=== PATIENT | female | born 1930 | race African-American/Black ===

== ENCOUNTER 2017-07-16 10:26 | Emergency (ER) | payer MEDICARE, OTHER ==
[~2017-07-16] VITALS: Ht 170.2 cm; Wt 70.0 kg
[~2017-07-16 10:26] MED LIST: AMLO10TA2 PO; ASPI81TA81 PO; ATOR20TA15 PO; CLAR10CA3 PO; GALA8TAB PO; GLIM1 PO; HYDR25TA5 PO; LANC1MIS74; LISI30TA4 PO; METF500T PO; METO25TA3 PO; OMEP20TA93 PO; VENTAER INH
[2017-07-16 10:31] VITALS: BP 215/87; PULSE 79; RESP 18; TEMP 98.8; O2SAT 98
--- NOTE | 2017-07-16 10:45 | PD ---
HPI Chief Complaint: Fall Time Seen by Provider: 10:39 Travel History International Travel<30 days: No Contact w/Intl Traveler<30days: No Traveled to known affect area: No History of Present Illness HPI 86yo F with PMH of HTN, DM presents to the ED with c/o mid scalp laceration, headache, right knee pain s/p fall today. Pt was on her walker going down a ramp and the walker slipped and she fell forward hitting her head. Denies any LOC, dizziness, chest pain, sob, n/v, abdominal pain, visual changes, focal weakness or numbness. Does not remember last tetanus. Denies any anticoagulation. PFSH Past Medical History Arthritis: Yes Autoimmune Disease: No Blood Disorders: No Cancer: No Cardiovascular Problems: Yes (htn) High Cholesterol: Yes Diabetes: Yes Patient Takes Glucophage: Yes Endocrine: Yes Gastrointestinal Disorders: Yes Genitourinary: No Hypertension: Yes Musculoskeletal: Yes Neurologic: No Psychiatric: No Reproductive: No Respiratory: Yes (bronchitis x2) Menopausal: Yes Past Surgical History Abdominal Surgery: No Cardiac Surgery: No Ear Surgery: No Endocrine Surgery: No Eye Surgery: No Genitourinary Surgery: No Gynecologic Surgery: No Oral Surgery: No Thoracic Surgery: No Other Surgery: Yes (R HIP REPLACEMENT) Social History Alcohol Use: No Tobacco Use: No Substance Use: No Allergies-Medications (Allergen,Severity, Reaction): Coded Allergies: No Known Allergies (Verified Adverse Reaction, Unknown, 03/22/17) Reported Meds & Prescriptions Reported Meds & Active Scripts Active Hydrocodone-Acetaminophen 5-325 mg Tab 1 Tab PO Q6H PRN Omeprazole 20 Mg Tab 20 Mg PO EVERY OTHER DAY Metformin (Metformin HCl) 500 Mg Tab 500 Mg PO BIDPC With meals Reported Aspir-81 (Aspirin) 81 Mg Tabdr 81 Mg PO DAILY Ventolin Hfa 18 GM Inh (Albuterol Sulfate) 90 Mcg/Act Aer 1 Puff INH Q4H PRN Review of Systems Except as stated in HPI: all other systems reviewed are Neg Physical Exam Narrative GENERAL: 86yo F in mild distress. SKIN: Focused skin assessment warm/dry. HEAD: 2cm mid scalp laceration. EYES: Pupils equal and round at 3mm bilaterally. EOMI. ENT: No nasal bleeding or discharge. Mucous membranes pink and moist. NECK: Cervical spine collar. CARDIOVASCULAR: Regular rate and rhythm. No murmur appreciated. RESPIRATORY: No accessory muscle use. Clear to auscultation. Breath sounds equal bilaterally. GASTROINTESTINAL: Abdomen soft, non-tender, nondistended. MUSCULOSKELETAL: No ttp in bilateral hips. +TTP right knee. No edema or open wound on knee. Sensation intact. Distal pulses intact. NEUROLOGICAL: Awake and alert. No obvious cranial nerve deficits. Motor grossly within normal limits. Normal speech. PSYCHIATRIC: Appropriate mood and affect; insight and judgment normal. Data Data Last Documented VS Vital Signs Date Time Temp Pulse Resp B/P (MAP) Pulse Ox O2 Delivery O2 Flow Rate FiO2 07/16/17 13:30 86 14 170/64 (99) 95 07/16/17 12:00 Room Air 07/16/17 10:[address] Brain W/O Iv Contrast(Rout) (07/16/17 ) Ct Cerv Spine W/O Contrast (07/16/17 ) Knee, Ltd (1 Or 2vws) (07/16/17 ) Blood Glucose (07/16/17 10:39) Tetanus/Diphtheria Tox Adult (Tetanus/Di (07/16/17 11:00) Morphine Inj (Morphine Inj) (07/16/17 11:00) Acetaminophen (Tylenol) (07/16/17 13:00) Ed Discharge Order (07/16/17 12:49) MDM Medical Decision Making Medical Screen Exam Complete: Yes Emergency Medical Condition: Yes Differential Diagnosis ICH vs. fracture vs. contusion Narrative Course 86yo F with c/o headache and right knee pain s/p mechanical fall today. CT cervical spine showed no acute fracture or malalignment. There is a disc osteophyte complex at C5-6 with mass effect on the anterior thecal sac with apparent flattening of the cord. Pt will have to follow up with neurosurgery as outpatient. Informed pt of this. Pt has no focal neurologic deficits. CT brain showed new nondisplaced fracture through left lateral orbit. No hemorrhage. Will have pt follow up with craniofacial as outpatient. Xray right knee showed no acute fracture. Osteopenia and degenerative change. Pt given tetanus and morphine with improvement of pain. Copies of CT scan given to patient. Return precautions given. Procedures Procedure Narrative LACERATION LOCATION: scalp LENGTH: 2cm NUMBER OF STITCHES/PHYLLIS: 3 phyllis REPAIR: The wound was copiously irrigated and explored without evidence of foreign body, tendon injury or neurovascular injury. The wound was closed using staple. This was a single layer repair. Patient tolerated the procedure well. Diagnosis Primary Impression: Left orbit fracture Qualified Codes: S02.82XA - Fracture of other specified skull and facial bones , left side, initial encounter for closed fracture Referrals: Umang Murphy MD call for appointment Incidental finding of disc osteophyte complex at C5-6 with mass effect on anterior thecal sac and apparent flattening of the cord. Carter Marin DMD call for appointment Nondisplaced fracture through left lateral orbit. Patient Instructions: General Instructions Departure Forms: Tests/Procedures Additional Instructions: Please follow up with neurosurgery and craniofacial as instructed. Please return to the ED if symptoms worsen. Please have phyllis remove in 5 days by primary care physician or ED. Med/Other Pt SpecificInfo: Prescription(s) given Scripts Hydrocodone-Acetaminophen (Hydrocodone-Acetaminophen) 5-325 mg Tab 1 TAB PO Q6H Y for PAIN, #7 TAB 0 Refills Prov: Meaghan Urena DO 07/16/17 Disposition: 01 DISCHARGE HOME Condition: Stable Meaghan Urena DO Jul 16, 2017 10:45
[2017-07-16] MEDS ORDERED: MORPHINE SULFATE 2 MG/ML SYRINGE IM ONE (11:00)
[2017-07-16] MEDS ORDERED: TETANUS/DIPHTHERIA TOXOID ADULT 0.5 ML VIAL IM ONE (11:00)
--- NOTE | 2017-07-16 11:09 | RADRPT ---
EXAM DATE/TIME: 07/16/2017 10:57 [facility] COMPARISON: No previous studies available for comparison. INDICATIONS : Pain in right knee, post fall today. MEDICAL HISTORY : None. SURGICAL HISTORY : Total knee replacement, left. Total right hip replacement. ENCOUNTER: Initial ACUITY: 1 day PAIN SCORE: 7/10 LOCATION: Right Knee. FINDINGS: Limited AP and lateral views of the right knee were obtained and not a standard 4 view trauma series which limits the sensitivity for detecting subtle abnormalities. There is diffuse moderate osteopenia normal alignment. There is no visualized fracture. Degenerative changes noted in the lateral compart ment joint space loss and sclerosis as well as mild spurring. There is no definite effusion. Vascular calcifications are present. CONCLUSION: 1. No acute fracture or malalignment visualized on this limited 2 view study. 2. Osteopenia and degenerative change. Silvestre Esparza MD on July 16, 2017 at 11:06 Board Certified Radiologist. This report was verified electronically.
--- NOTE | 2017-07-16 11:16 | RADRPT ---
EXAM DATE/TIME: 07/16/2017 11:03 [facility] COMPARISON: CT BRAIN W/O CONTRAST, February 18, 2015, 14:51. INDICATIONS : Trauma, fall today onto concrete. RADIATION DOSE: 56.35 CTDIvol (mGy) MEDICAL HISTORY : Hypertension. diabetes SURGICAL HISTORY : None. ENCOUNTER: Initial ACUITY: 1 day PAIN SCALE: 7/10 LOCATION: Bilateral head TECHNIQUE: Multiple contiguous axial images were obtained of the head. Using automated exposure control and adj ustment of the mA and/or kV according to patient size, radiation dose was kept as low as reasonably a chievable to obtain optimal diagnostic quality images. DICOM format image data is available electro nically for review and comparison. FINDINGS: CEREBRUM: The ventricles are normal for age. No evidence of midline shift, mass lesion, hemorrhage or acute in farction. No extra-axial fluid collections are seen. POSTERIOR FOSSA: The cerebellum and brainstem are intact. The 4th ventricle is midline. The cerebellopontine angle i s unremarkable. EXTRACRANIAL: There is a new nondisplaced small fracture through the left lateral orbit best seen on axial image #1 4. There is no intraorbital emphysema. The remainder of the facial bones are intact. The paranasal si nuses are clear. SKULL: The calvaria is intact. No evidence of skull fracture. There is soft tissue swelling over the left f rontal bone. CONCLUSION: 1. New nondisplaced fracture through the left lateral orbit. The remainder of the visualized facial b ones are intact. 2. Soft tissue swelling over the left frontal bone with no evidence of fracture or hemorrhage. Silvestre Esparza MD on July 16, 2017 at 11:11 Board Certified Radiologist. This report was verified electronically.
--- NOTE | 2017-07-16 11:27 | RADRPT ---
EXAM DATE/TIME: 07/16/2017 11:03 [facility] COMPARISON: No previous studies available for comparison. INDICATIONS : Trauma, fall today onto concrete. Left orbit fracture. RADIATION DOSE: 20.31 CTDIvol (mGy) MEDICAL HISTORY : Hypertension. diabetes SURGICAL HISTORY : None. ENCOUNTER: Initial ACUITY: 1 day PAIN SCALE: 7/10 LOCATION: Bilateral neck TECHNIQUE: Volumetric scanning of the cervical spine was performed. Multiplanar reconstructions i n the sagittal, coronal and oblique axial planes were performed. Using automated exposure control a nd adjustment of the mA and/or kV according to patient size, radiation dose was kept as low as reason ably achievable to obtain optimal diagnostic quality images. DICOM format image data is available e lectronically for review and comparison. FINDINGS: The sagittal reconstructions demonstrate normal alignment and normal prevertebral soft tissues. The d ens is intact and there is a normal atlantoaxial relationship. Degenerative changes are present great est at the C5-6 level with disc space narrowing, hypertrophic change and vacuum disc phenomena. The axial images demonstrate that the vertebral bodies and posterior elements are intact. The soft ti ssues are within normal limits. There is no evidence of acute fracture or malalignment. There is a di sc osteophyte complex at the C5-6 level with mass effect on the anterior thecal sac and apparent flat tening the cord. The neural foramina are narrowed bilaterally. Degenerative changes are noted involvi ng the facet joints. CONCLUSION: Negative trauma CT with no acute fracture or malalignment. There is a disc osteo phyte complex at C5-6 with mass effect on the anterior thecal sac and apparent flattening of the cord . Silvestre Esparza MD on July 16, 2017 at 11:23 Board Certified Radiologist. This report was verified electronically.
[2017-07-16 12:00] VITALS: BP 189/81; PULSE 62; RESP 18; O2SAT 99
[2017-07-16] MEDS ORDERED: TYLE325T PO (12:22)
[2017-07-16] MEDS ORDERED: ACETAMINOPHEN 500 MG CPLT PO ONE (13:00)
[2017-07-16] MEDS ORDERED: HYDR-3516 PO (13:18)
[2017-07-16 13:30] VITALS: BP 170/64
== END 2017-07-16 13:32 | disposition home or self-care (01) ==
LOC: NEPE 10:26
DX: S02.82XA Fracture of other specified skull and facial bones, left side, initial encounter for closed fracture (principal); M25.78 Osteophyte, vertebrae; R51 Headache; M25.561 Pain in right knee; I10 Essential (primary) hypertension; E11.9 Type 2 diabetes mellitus without complications; W01.0XXA Fall on same level from slipping, tripping and stumbling without subsequent striking against object, initial encounter; Z23 Encounter for immunization; Z79.84 Long term (current) use of oral hypoglycemic drugs
CPT/HCPCS: 12001; 70450; 72125; 73560; 90471; 90714; 96372; 99284; J2270